=== PATIENT | female | born 2000 | race Native Hawaiian/Other Pacific Islander ===

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

== ENCOUNTER 2022-07-22 21:15 | Emergency (ER) | payer OTHER ==
[~2022-07-22] VITALS: Ht 167.6 cm; Wt 90.7 kg
[2022-07-22 22:07] VITALS: BP 117/77; TEMP 97.9
== END 2022-07-22 22:07 | disposition home or self-care (01) ==
LOC: ED 21:15
DX: K08.89 Other specified disorders of teeth and supporting structures (principal)
CPT/HCPCS: 96372; 99282; J1885

== ENCOUNTER 2022-08-04 00:43 | Emergency (ER) | payer OTHER ==
[~2022-08-04] VITALS: Ht 167.6 cm; Wt 133.4 kg
[2022-08-04 00:43] VITALS: BP 108/64; TEMP 97.7
== END 2022-08-04 01:20 | disposition home or self-care (01) ==
LOC: ED 00:43
DX: K12.1 Other forms of stomatitis (principal); Z70.8 Other sex counseling
CPT/HCPCS: 99281